=== PATIENT | female | born 1965 | race African-American/Black ===

== ENCOUNTER 2017-12-08 09:45 | Emergency (ER) | payer OTHER ==
[~2017-12-08] VITALS: Ht 167.6 cm; Wt 99.8 kg
[2017-12-08] MEDS ORDERED: VASOTEC20 M1 PO (10:29)
[2017-12-08] MEDS ORDERED: HYDRODIURIL12.5 MG PO (10:31)
== END 2017-12-08 15:33 | disposition home or self-care (01) ==
LOC: ER 09:45
DX: M79.18 Myalgia, other site (principal); N39.0 Urinary tract infection, site not specified